=== PATIENT | female | born 1960 | race Caucasian/White ===

== ENCOUNTER 2018-09-16 16:19 | Emergency (ER) | payer BC ==
[~2018-09-16] VITALS: Ht 165.1 cm; Wt 85.3 kg
[2018-09-16 16:35] VITALS: BP_SYST 146
[2018-09-16] MEDS ORDERED: IBUPROFEN 800 MG TABLET PO ONE (18:45)
[2018-09-16 19:15] VITALS: BP_SYST 130
== END 2018-09-16 19:15 | disposition home or self-care (01) ==
LOC: SED 16:19
DX: M79.661 Pain in right lower leg (principal); R03.0 Elevated blood-pressure reading, without diagnosis of hypertension; Z86.718 Personal history of other venous thrombosis and embolism
CPT/HCPCS: 93971; 99284